=== PATIENT | female | born 1955 | race Caucasian/White ===

== ENCOUNTER 2021-02-27 08:25 | Outpatient (REF) | payer OTHER, SELFPAY ==
--- NOTE | 2021-02-27 09:44 | MHC.AU.ANR ---
Adult Audiological Evaluation Date of Visit: 02/27/21 Reason for Appointment: Audiological evaluation due to concern for decreased hearing. Ms. Gilbert has noticed that she doesn't always here well in the presence of background noise. She feels her hearing is gradually decreasing. 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 Right Ear: Normal Middle Ear System (Type A) Left Ear: Normal Middle Ear System (Type A) Hearing Evaluation: Transducer(s) Used: Insert Earphones, Bone Conduction Method: Conventional Audiometry Stimuli Used: Pure Tones Right Ear: Description of Hearing: Normal hearing from 250-2000 Hz, sloping to a mild to moderate sensorineural hearing loss from 7637-7163 Hz. Left Ear: Description of Hearing: Normal hearing from 250-2000 Hz, sloping to a mild to moderate sensorineural hearing loss from 3991-3618 Hz. Speech Recognition Threshold (SRT): Method Used: Monitored Live Voice Stimuli Used: Spondee Words Right Ear: 10 dBHL Left Ear: 0 dBHL Word Discrimination: Method: Recorded Lists Word Lists Used: NU-6 Right Ear: 92% at 50 dBHL Left Ear: 92% at 50 dBHL QuickSIN: 2 dB SNR loss when presented at 65 dBHL binaurally, indicating normal speech understanding abilities in the presence of background noise. Recommendations: Audiological re-evaluation in one year. Amplification is not warranted at this time. Hearing protection should be used when around loud noise. Diagnosis: Primary Diagnosis: H90.3 Bilateral Sensorineural Hearing Loss Services Performed: Services Performed: Comprehensive Audiological Evaluation (CPT 11978) Tympanometry (CPT 46767) Signature: Provider: Gayla Garner, CCC-A
== END 2021-02-27 08:26 | disposition home or self-care (01) ==
LOC: HO.SH 08:25
PROVIDERS: PCP Internal Medicine; Visit Provider Internal Medicine
DX: H90.3 Sensorineural hearing loss, bilateral (principal)
CPT/HCPCS: 92557; 92567

== ENCOUNTER 2023-11-29 08:26 | Outpatient (REF) | payer OTHER, SELFPAY | END 2023-11-29 08:27 | disposition home or self-care (01) | LOC: HO.SH 08:26 | PROVIDERS: Visit Provider Internal Medicine | DX: Z01.118 Encounter for examination of ears and hearing with other abnormal findings (principal); H90.3 Sensorineural hearing loss, bilateral | CPT/HCPCS: 92552; 92556 ==